=== PATIENT | female | born 1975 | race Caucasian/White ===

== ENCOUNTER 2016-11-08 20:44 | Emergency (ER) | payer BC ==
[2016-11-10 11:50] LABS: ASPARTATE AMINO TRANSFERASE 13 U/L (15-37); BLOOD UREA NITROGEN 12 mg/dL (7-18)
[2016-11-11 09:10] LABS: HCG UR OBC PASS
== END 2016-11-09 03:15 | disposition home or self-care (01) ==
LOC: ED 20:44
DX: R10.84 Generalized abdominal pain (principal)
CPT/HCPCS: 36415; 74176; 80048; 80076; 81001; 81025; 82040; 83690; 85025; 87086